=== PATIENT | female | born 1950 | race Two or more races ===

== ENCOUNTER 2016-09-10 17:22 | Emergency (ER) | payer OTHER, MEDICAID ==
[~2016-09-10] VITALS: Ht 162.6 cm; Wt 72.6 kg
[2016-09-10 17:30] VITALS: BP 151/82
[2016-09-10 18:50] LABS: Basophils # (auto) 0 uL; Basophils % (auto) 0.5 % (0.0-2.0); Eosinophils # (auto) 0 uL; Eosinophils % (auto) 0.4 % (0.0-7.0); Hematocrit 38.3 % (36.0-46.0); Hemoglobin 12.8 g/dL (12.2-16.2); Lymphocytes # (auto) 1.4 uL; Lymphocytes % (auto) 15.8 % (10.0-50.0); Mean Corpuscular Hemoglobin 29.3 pg (28.0-32.0); Mean Corpuscular Hgb Conc. 33.4 g/dL (32.0-36.0); Mean Corpuscular Volume 87.8 fL (80.0-100.0); Mean Platelet Volume 8.7 fL (7.4-10.4); Monocytes # (auto) 0.4 uL; Monocytes % (auto) 4.9 % (0.0-12.0); Neutrophils # (auto) 7.1 uL; Neutrophils % (auto) 78.4 % (37.0-80.0); Platelet Count (auto) 336 10^3/uL (140-450); Red Cell Distribution Width 14.4 % (11.6-16.0)
[2016-09-10 18:59] LABS: Albumin 3.9 g/dL (3.4-5.0); Alkaline Phosphatase 106 U/L (45-117); Anion Gap 8 (5-15); Aspartate Aminotransferase 10 U/L (15-37); BUN/Creatinine Ratio 16.7; Bilirubin, Total 0.5 mg/dL (0.2-1.0); Blood Urea Nitrogen 9 mg/dL (7-18); Calcium 8.7 mg/dL (8.5-10.1); Carbon Dioxide 23 mmol/L (21-32); Chloride 111 mmol/L (98-107); GFR African American 146 mL/min; GFR Non-African American 121 mL/min; Glucose 108 mg/dL (74-106); Potassium 3.5 mmol/L (3.5-5.1); Sodium 142 mmol/L (136-145); Total Protein 7.3 g/dL (6.4-8.2)
== END 2016-09-10 21:31 | disposition left against medical advice (07) ==
LOC: EDUNIT# 17:22 → EDBD 17:22 → ER 17:28
DX: R07.9 Chest pain, unspecified (principal); Z53.21 Procedure and treatment not carried out due to patient leaving prior to being seen by health care provider
CPT/HCPCS: 36415; 80053; 84484; 85025; 93005

== ENCOUNTER 2016-10-23 06:46 | Day surgery (SDC) | payer OTHER, MEDICAID ==
[~2016-10-23] VITALS: Ht 149.9 cm; Wt 64.4 kg
[2016-10-23] MEDS ORDERED: IODIXANOL 320MG/ML 100ML BTL IV ONE (07:35)
[2016-10-23] MEDS ORDERED: LIDOCAINE 2%HCL (LOCAL ANESTH.) INJ 20ML MDV ONE (07:36)
[2016-10-23] MEDS ORDERED: MIDAZOLAM HCL 1MG/1ML-2 ML VIAL ONE (08:02)
[2016-10-23] MEDS ORDERED: VERAPAMIL 2.5MG/ML INJ 2ML VIAL IV ONE (08:03)
[2016-10-23] MEDS ORDERED: fentaNYL CITRATE 100 MCG/2 ML VL ONE (08:03)
[2016-10-23] MEDS ORDERED: SODIUM CHL 0.9% 0 ML ONE (08:12)
[2016-10-23] MEDS ORDERED: ANGIOMAX 250 MG VIAL IV ONE (08:12)
[2016-10-23] MEDS ORDERED: HEPARIN 1,000 UNITS/ml 1ML VIAL ONE (08:46)
[2016-10-23] MEDS ORDERED: LISI2.5T47 PO (10:18)
[2016-10-23] MEDS ORDERED: SIMV-8 PO (10:18)
[2016-10-23] MEDS ORDERED: METF-370 PO (10:18)
[2016-10-23] MEDS ORDERED: SODIUM CHLOR 0.9% PF (SALINE LOCK) 10ML VIAL IV SCH (14:00)
== END 2016-10-23 10:45 | disposition home or self-care (01) ==
LOC: CATH 06:46
PROVIDERS: ATTEND Internal Medicine
DX: I99.8 Other disorder of circulatory system (principal)
CPT/HCPCS: 93458; C1760; C1769; C1894; J1644; J2250; J3010; J7030; Q9967; 99152